=== PATIENT | male | born 1935 | race Caucasian/White ===

== ENCOUNTER → 2016-04-10 | Outpatient (CLI) | payer BC | LOC: COL.RAD 08:59 | DX: M51.14 Intervertebral disc disorders with radiculopathy, thoracic region (principal); G58.8 Other specified mononeuropathies ==

== ENCOUNTER 2018-04-04 07:57 | Inpatient (IN) | payer MEDICARE, BC ==
[2018-04-04] VITALS (12 sets, daily range): BP systolic 111–155; BP diastolic 50–82; PULSE 53–85; TEMP 97.4–9834
[~2018-04-04] VITALS: Ht 172.7 cm; Wt 85.5 kg
[2018-04-04] MEDS ORDERED: PYRIDIUM 100MG100 MG PO (09:35)
[2018-04-04] MEDS ORDERED: LEVAQUIN 5500 MG/TA1 PO (09:36)
[2018-04-04] MEDS ORDERED: SPORANOX PO (09:37)
[2018-04-04] MEDS ORDERED: PRINIVIL5 MG PO (09:38)
[2018-04-04] MEDS ORDERED: ASPIRIN E.C. 8181 MG PO (09:38)
[2018-04-04] MEDS ORDERED: FLOMAX 0.40.4 MG/CAP PO (09:40)
[2018-04-04] MEDS ORDERED: PRILOSEC 20MG20 MG PO (09:40)
--- NOTE | 2018-04-04 09:42 | NUR ---
200ml cloudy yellow urine drained from leg bag catheter. Report given to OR nurse and taken at this time for scheduled surgery via cart.
--- NOTE | 2018-04-04 10:29 | NUR ---
Initial visit; Animation Artist offered encouragement and prayer for patient prior to his surgical procedure.
[2018-04-05] VITALS (7 sets, daily range): BP systolic 91–146; BP diastolic 48–75; PULSE 83–115; TEMP 98–102.6
--- NOTE | 2018-04-05 02:52 | NUR ---
Patient awakened when nurse into check CBI. Muhammad draining light red urine. CBI at slow rate. Patient denies pain or needs.
--- NOTE | 2018-04-05 05:25 | NUR ---
PATIENT RESTS QUIETLY IN BED. RESPIRATIONS WITH EASE.
--- NOTE | 2018-04-05 10:33 | NUR ---
Plan to return home with family. Patient reports that he lives with his Daughter and her with thier five children. Patient indicated that he has a lot of support at home. Patient reports that he no longer drives. Patient indicated that he has rehab services three times a week in [facility]. Patient reports the use of CPAP at night. PCP is Dr. Viveros in [place]. Patient reports obtaining RX from Sandra in [facility]. Patient reports that he has home health care that assist him with bathing once a week. Home health through [facility]. Patient indicated that Andrea his son will transport him home. Patient report that use of a walker and cane. Action: SW educated of resources, no addtional need identified.
[2018-04-05 16:53] LABS: HEMOGLOBIN 10.1 g/dl (13.5-18.0); MEAN CELL VOLUME 91 fl (80.0-100.0); MEAN CORPUSCULAR HEMOGLOBIN 30 pg (27.0-31.0); MEAN CORPUSCULAR HGB CONC 33 g/dl (33.0-37.0); MEAN PLATELET VOLUME 8.7 fl (7.4-10.4); PLATELET COUNT 150 K/mm3 (130-400); RED BLOOD COUNT 3.33 M/mm3 (4.20-5.60)
[2018-04-05 16:56] LABS: HEMATOCRIT 30.2 % (42.0-52.0)
[2018-04-05 17:02] LABS: CALCIUM 8.5 mg/dL (8.4-10.2); CREATININE, serum 1.42 mg/dL (0.66-1.25); MAGNESIUM 1.3 mg/dL (1.6-2.3); POTASSIUM 3.5 mmol/L (3.4-5.0)
[2018-04-05 17:13] LABS: TROPONIN-I 0.018 ng/mL (0.000-0.035)
--- NOTE | 2018-04-05 18:00 | NUR ---
Sat up in chair in morning without complaint. CBI infused. Plan to dc zafar catheter in AM. Required two assist to transfer back to bed in PM. Shaking with transfer. Vomited undigested food x 2. Febrile. Dr. Shields notified. Hospitalist consulted. IV fluids and antibiotic given. Denied pain. Nausea improved after med. Temp down to 99.0. States feels a lot better.
[2018-04-05 19:03] LABS: COLLECTION METHOD CATHETER
[2018-04-05 19:20] LABS: MUCOUS Present /lpf; PH 6 (5-8); SQUAMOUS EPITHELIAL None Seen /hpf; URINE APPEARANCE Cloudy; URINE BACTERIA Rare /hpf; URINE BILIRUBIN Negative (NEGATIVE); URINE BLOOD 3+ (NEGATIVE); URINE COLOR Red; URINE GLUCOSE 1+ (NEGATIVE); URINE KETONE Negative (NEGATIVE); URINE LEUKOCYTE ESTERASE Negative (NEGATIVE); URINE NITRATE Negative (NEGATIVE); URINE PROTEIN(semi-quant) 2+ (NEGATIVE); URINE RBC >50 /hpf; URINE UROBILINOGEN Negative (NEGATIVE)
--- NOTE | 2018-04-05 19:30 | NUR ---
Report received from Livia AMES. Into see patient and patient resting soundly with eyes closed. Respirations with ease. Muhammad draining dk maroon urine.
[2018-04-05 20:53] LABS: BAND 11 % (0-10); LYMPHOCYTE 3 % (20.0-51.0); NEUTROPHILS 86 % (42.0-75.2); PLATELET ESTIMATE NORMAL (NORMAL)
--- NOTE | 2018-04-05 22:00 | NUR ---
Patient awakened for HS med colace/reviewed and given. Patient denies pain, dizziness nausea or vomiting. States he's feeling better. Reviewed lactic acid lab to be drawn q 6hours to check for infection. Patient encouraged to ambulate and up mod 1 assist with walker in hallway just past nurses station and back to room with walker. Incontinent moderate amount of soft brown bm and was unaware. Muhammad care done/incontinent care done and barrier cream applied to red inner buttucks. States is sore "from sitting on it too much". Encouraged to off load and rest on side. Instructed on couph and deep breathe. Sits up on side of bed for awhile and then rests self back onto left side.
[2018-04-06] VITALS (8 sets, daily range): BP systolic 86–130; BP diastolic 49–69; PULSE 76–87; TEMP 97.6–100.1
--- NOTE | 2018-04-06 01:20 | NUR ---
Noted patients BP low and rechecked with manual cuff and read 104/62 LA. Patient denies pain or complaints. Returns to resting. SCD's on.
--- NOTE | 2018-04-06 03:06 | NUR ---
Patient rests in bed with eyes closed. Respirations with ease. Lactic acid at 0126 1.3.
--- NOTE | 2018-04-06 04:47 | NUR ---
PATIENT RESTS WITH EYES CLOSED. RESPIRATIONS WITH EASE. NO CLOTS IN SOLIS BAG WHEN EMPTIED. CBI UTILIZED PRN AT SLOW RATE DUE TO DK RED/MAROON URINE.
--- NOTE | 2018-04-06 05:45 | NUR ---
Reviewed priming and and discontinueing zafar catheter. Zafar catheter tubing clamped and zafar primed with 200mls CBI. Zafar cath care done. Balloon deflated of 28mls fluid and 20fr zafar dc'd without problems. Patient tolerated procedure well. Urinal given at bedside and explained to call staff after each void-6 bottle routine. Patient denies pain.
[2018-04-06 09:07] LABS: MEAN CELL VOLUME 93 fl (80.0-100.0); MEAN CORPUSCULAR HGB CONC 33 g/dl (33.0-37.0); MEAN PLATELET VOLUME 8.7 fl (7.4-10.4); PLATELET COUNT 143 K/mm3 (130-400); RED BLOOD COUNT 2.92 M/mm3 (4.20-5.60); REDCELL DISTRIBUTION WIDTH-CV 13.3 % (11.5-14.5)
[2018-04-06 09:08] LABS: HEMATOCRIT 27.1 % (42.0-52.0); MEAN CORPUSCULAR HEMOGLOBIN 31 pg (27.0-31.0)
[2018-04-06 09:16] LABS: CALCIUM 8.2 mg/dL (8.4-10.2); CREATININE, serum 1.44 mg/dL (0.66-1.25); POTASSIUM 4.3 mmol/L (3.4-5.0)
--- NOTE | 2018-04-06 18:00 | NUR ---
Ambulatory in room with one assist. Had several loose stools in AM. Incontinent and dribbling urine. No c/o pain or nausea. Muhammad catheter inserted for urine retention. Large amounts santiago urine returned.
--- NOTE | 2018-04-07 03:33 | NUR ---
THE PT WAS BEDRESTING THE SHIFT BEGAN, HAD JUST FINISHED HIS SUPPER, VERBALIZED THAT HE WAS TOO BUSY WITH DIARHEA INCONTINENT BOWELS, NO BATH, FEELS THAT HE SMELLS, WANTS BATHED TOMORROW. THIS NURSE ASSURED HIM THAT IT WOULD BE DONE. IV PATENT SOLIS PATENT WITH OLD BLOOD SEDIMENT. GRADUALY THE CLARITY OF THE URINE HAS IMPROVED, HE DENIED PAIN, NO FURTHER DIARRHEA STOOLS. A&O, PLEASANT.
[2018-04-07 04:50] VITALS: BP 122/64; PULSE 73; TEMP 98.5
--- NOTE | 2018-04-07 04:57 | NUR ---
THE PT IS BEDRESTING WITH EYES CLOSED, RESP EVEN. IV PATENT, SOLIS PATENT, URINE IS CLEARER.
--- NOTE | 2018-04-07 08:13 | NUR ---
Patient alert and oriented, answers questions appropriately. See assessment. Muhammad catheter patent, draining clear santiago urine. No c/o at this time.
--- NOTE | 2018-04-07 08:15 | NUR ---
Muhammad catheter removed per drs order.
[2018-04-07 08:19] VITALS: BP 137/68; PULSE 72; TEMP 98.7
[2018-04-07 11:29] LABS: BASO % 0.1 % (0.0-2.0); EOS # 0.1 (0.0-0.7); EOS % 1.3 % (0-4.0); GRAN # 6.1 (1.4-6.5); GRAN % 86.8 % (42.2-75.2); LYMPH # 0.3 (1.2-3.4); LYMPH % 4.2 % (20.0-51.0); MEAN CELL VOLUME 93 fl (80.0-100.0); MEAN CORPUSCULAR HGB CONC 32 g/dl (33.0-37.0); MEAN PLATELET VOLUME 8.8 fl (7.4-10.4); MONO # 0.5 (0.1-0.6); PLATELET COUNT 148 K/mm3 (130-400); RED BLOOD COUNT 2.84 M/mm3 (4.20-5.60); REDCELL DISTRIBUTION WIDTH-CV 13.4 % (11.5-14.5)
[2018-04-07 11:30] LABS: HEMATOCRIT 26.3 % (42.0-52.0); HEMOGLOBIN 8.5 g/dl (13.5-18.0); MEAN CORPUSCULAR HEMOGLOBIN 30 pg (27.0-31.0)
[2018-04-07 11:37] LABS: CALCIUM 8.4 mg/dL (8.4-10.2); CREATININE, serum 1.39 mg/dL (0.66-1.25); POTASSIUM 3.9 mmol/L (3.4-5.0)
[2018-04-07 12:21] VITALS: BP 132/63; PULSE 76; TEMP 98.8
[2018-04-07 16:07] VITALS: BP 140/68; PULSE 73; TEMP 99.6
[2018-04-07 20:30] VITALS: BP 152/66; PULSE 71; TEMP 100.2
[2018-04-08 00:37] VITALS: BP 146/67; PULSE 73; TEMP 99.5
--- NOTE | 2018-04-08 01:26 | NUR ---
THE PT WAS BEDRESTING, WATCHING TV THE SHIFT BEGAN. REQUESTED ICE CREAM, GIVEN. THEN HAD GRAPE JUICE. SLIGHT TEMP ELEVATION, ENCOURAGED C&DB. WILL IS PATENT OF DEE URINE. HE DENIED PAIN.
[2018-04-08 04:36] VITALS: BP 121/69; PULSE 73; TEMP 99.4
--- NOTE | 2018-04-08 06:02 | NUR ---
THE PT APPEARS TO GET ADEQUATE SLEEP. SOLIS OUTPUT 1350, SMALL AMOUNT OF HAZE TO IT NOTED IN THE URINE CANISTER, LOOKS CLEAR IN THE TUBING THOUGH. STILL HAS LOW GRADE T 99.4 THIS AM. HAD ENCOURGAED FLUIDS TONIGHT.
--- NOTE | 2018-04-08 07:48 | NUR ---
Patient alert and oriented, answers questions appropriately. See assessment. Muhammad catheter patent and draining clear yellow urine. No c/o at this time.
[2018-04-08 09:16] VITALS: BP 135/79; PULSE 80; TEMP 98.6
--- NOTE | 2018-04-08 11:24 | NUR ---
First visit from the international marketing specialist. No needs right now.
--- NOTE | 2018-04-08 11:25 | NUR ---
SW and SW student attended clinical rounding. Patient is dc home today with family support. No unmet discharge needs.
[2018-04-08] MEDS ORDERED: OMNICEF 300MG300 MG PO (11:38)
[2018-04-08 12:17] VITALS: BP 128/61; PULSE 70; TEMP 98.6
[2018-04-08 16:44] VITALS: BP 144/58; PULSE 70; TEMP 98.7
--- NOTE | 2018-04-08 18:33 | NUR ---
Discharge instructions reviewed with patient and family, verbalized understanding. Discharged via wheelchair to auto/home with family at 1834. Discharged with zafar in place, instructions given.
== END 2018-04-08 18:34 | disposition home or self-care (01) | DRG 854 ==
LOC: SURG 07:57 → SDCO 07:57 → SURG 11:20 → SDCO 04-06 11:20 → SURG 04-07 07:02
PROVIDERS: Family Medicine; Physician Assistant; ADMIT Urology
PROC: 0VT08ZZ Resection of Prostate, Via Natural or Artificial Opening Endoscopic (ICD-10-PCS; principal; 2018-04-04 10:00)
DX: R50.82 Postprocedural fever (principal); R65.10 Systemic inflammatory response syndrome (SIRS) of non-infectious origin without acute organ dysfunction; I10 Essential (primary) hypertension; N40.0 Benign prostatic hyperplasia without lower urinary tract symptoms; Z85.51 Personal history of malignant neoplasm of bladder; Z87.01 Personal history of pneumonia (recurrent)
CPT/HCPCS: OP; 99232-AI; A4216; J0690; J0696; J2250; J2405; J2704; J3010; J7030; J7120